=== PATIENT | female | born 1945 | race Caucasian/White ===

== ENCOUNTER 2024-03-11 02:31 | Inpatient (IN) | payer MEDICARE, MEDICAID ==
[~2024-03-11] VITALS: Ht 165.1 cm; Wt 54.4 kg
[2024-03-11 02:50] VITALS: PULSE 62; RESP 18; O2SAT 96
--- NOTE | 2024-03-11 02:55 | ED.PDOC ---
History of Present Illness HPI Comments 78-year-old female who came to ER for cellulitis infection. Patient does have a history of hypertension, diabetes, and breast cancer. Patient underwent lumpectomy and lymph node dissection of the left breast last January 31 at [facility]. KYMBERLY drain attached. For the past few days patient has been complaining of on the left lateral breast area at the area of the KYMBERLY drain with serosanguineous fluid seen. Noted areas gotten more red and inflamed over the past days. Denies any fever. Patient went to [facility] but was eventually transferred here for further management. 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 OPERATOR Hx Family History Family History: Reviewed,noncontributory to illness Social History Smoker: Non-Smoker Alcohol: Denies ETOH Use Drugs: Denies Drug Use Lives In: Home Constitutional: denies: chills, diaphoresis, fatigue, fever, malaise, sweats, weakness, others EENTM: denies: blurred vision, double vision, ear bleeding, ear discharge, ear drainage, ear pain, ear ringing, eye pain, eye redness, hearing loss, mouth pain, mouth swelling, nasal discharge, nose bleeding, nose congestion, nose pain, photophobia, tearing, throat pain, throat swelling, voice changes, others Respiratory: denies: cough, hemoptysis, orthopnea, SOB at rest, shortness of breath, SOB with excertion, stridor, wheezing, others Cardiovascular: denies: chest pain, dizzy spells, diaphoresis, Dyspnea on exe rtion, edema, irregular heart beat, left arm pain, lightheadedness, palpitations, PND, syncope, others Gastrointestinal: denies: abdomen distended, abdominal pain, blood streaked bowels, constipated, diarrhea, dysphagia, difficulty swallowing, hematemesis, melena, nausea, poor appetite, poor fluid intake, rectal bleeding, rectal pain, vomiting, others Genitourinary: denies: abnormal vagina bleeding, burning, dyspareunia, dysuria, flank pain, frequency, hematuria, incontinence, pain, , vagina discharge, urgency, others Neurological: denies: dizziness, fainting, headache, left sided numbness, left sided weakness, numbness, paresthesia, pre-existing deficit, right sided numbness, right sided weakness, seizure, speech problems, tingling, tremors, weakness, others Musculoskeletal: denies: back pain, gout, joint pain, joint swelling, muscle pain, muscle stiffness, neck pain, others Integumetry: reports: others (Cellulitis left chest wall); denies: bruises, change in color, change in hair/nails, dryness, laceration, lesions, lumps, rash, wounds Allergic/Immunocompromised: denies: Difficulty Healing, Frequent Infections, Hives, Itching, others Hematologic/Lymphatic: denies: anemia, blood clots, easy bleeding, easy bruising, swollen glands, others Endocrine: denies: excessive hunger, excessive sweating, excessive thirst, excessive urination, flushing, intolerance to cold, intolerance to heat, unexplained weight gain, unexplained weight loss, others Psychiatric: denies: anxiety, bipolar disorder, depression, hopeless, panic disorder, schizophrenia, sleepless, suicidal, others Physical Exam General Appearance: No Apparent Distress, Normal HEENT: Normal ENT Inspection, Pharynx Normal, TMs Normal Neck: Full Range of Motion, Non-Tender, Normal, Normal Inspection Respiratory: Chest Non-Tender, Lungs Clear, No Accessory Muscle Use, No Respiratory Distress, Normal Breath Sounds Cardiovascular: No Edema, No JVD, No Murmur, No Gallop, Normal Peripheral Pulses, Regular Rate/Rhythm Breast Exam: Other (Tenderness erythema and warmth to chest into the left axillary area with KYMBERLY drain) Gastrointestinal: No Organomegaly, Non Tender, No Pulsatile Mass, Normal Bowel Sounds, Soft Genitalia: Deferred Pelvic: Deferred Rectal: Deferred Extremities: No calf tenderness, Normal capillary refill, Normal inspection, Normal range of motion, Non-tender, No pedal edema Musculoskeletal : Apperance: Normal Neurologic: Alert, product management internship II-XII nml as Tested, No Motor Deficits, Normal Affect, Normal Mood, No Sensory Deficits Cerebellar Function: Normal Reflexes: Normal Skin: Dry, Normal Color, Warm Lymphatic: No Adenopathy Was a procedure done? Was a procedure done?: No Differential Dx Considerations may include: Cellulitis, abscess X-Ray, Labs, Meds, VS Vital Signs Date Time Temp Pulse Resp B/P (MAP) Pulse Ox O2 Delivery O2 Flow Rate FiO2 03/11/24 05:00 72 14 141/70 (93) 96 03/11/24 04:25 75 03/11/24 04:06 62 15 151/64 03/11/24 03:40 64 13 151/64 03/11/24 02:50 98.4 62 15 151/64 (93) 96 98.4 03/11/24 02:50 62 18 96 Nasal Cannula* 2 28 03/11/24 02:50 98.4 62 18 142/70 (94) 94 Lab Test 03/11/24 02:50 Range/Units White Blood Count 4.8 4.4-10.8 10^3/uL Red Blood Count 4.18 4.0-5.20 10^6/uL Hemoglobin 13.3 12.2-16.2 g/dL Hematocrit 39.5 36.0-46.0 % Mean Corpuscular Volume 94.6 80.0-100.0 fL Mean Corpuscular Hemoglobin 31.8 28.0-32.0 pg Mean Corpuscular Hemoglobin Concent 33.7 32.0-36.0 g/dL Red Cell Distribution Width 12.9 11.8-14.3 % Platelet Count 254 140-450 10^3/uL Mean Platelet Volume 6.6 L 6.9-10.8 fL Neutrophils (%) (Auto) 70.0 37.0-80.0 % Lymphocytes (%) (Auto) 20.5 10.0-50.0 % Monocytes (%) (Auto) 8.0 0.0-12.0 % Eosinophils (%) (Auto) 0.8 0.0-7.0 % Basophils (%) (Auto) 0.7 0.0-2.0 % Neutrophils # (Auto) 3.3 1.6-8.6 10 ^3/uL Lymphocytes # (Auto) 1.0 0.4-5.4 10 ^3/uL Monocytes # (Auto) 0.4 0-1.3 10 ^3/uL Eosinophils # (Auto) 0 0-0.8 10 ^3/uL Basophils # (Auto) 0 0-0.2 10 ^3/uL Nucleated Red Blood Cells 0.0 % Sodium Level 138 136-145 mmol/L Potassium Level 3.8 3.5-5.1 mmol/L Chloride Level 105 98-107 mmol/L Carbon Dioxide Level 28 20-31 mmol/L Anion Gap 5 5-15 Blood Urea Nitrogen 7 L 9-23 mg/dL Creatinine 0.64 0.550-1.02 mg/dL Glomerular Filtration Rate Calc 91 >90 mL/min BUN/Creatinine Ratio 10.9 10.0-20.0 Serum Glucose 106 74-106 mg/dL Lactic Acid Level 1.1 0.4-2.0 mmol/L Calcium Level 9.7 8.7-10.4 mg/dL Current Medications Medications (Trade) Dose Ordered Sig/Jaziel Route Start Time Stop Time Status Last Admin Morphine Sulfate 4 mg ONCE ONCE IV 03/11/24 03:30 03/11/24 03:31 DC 03/11/24 03:40 Ondansetron HCl (Zofran) 4 mg ONCE ONCE IV 03/11/24 03:30 03/11/24 03:31 DC 03/11/24 03:40 Time of 1ST Reevaluation: 02:42 Reevaluation 1ST: Unchanged Patient Education/Counseling: Diagnosis, Treatment Family Education/Counseling: No Family Present Departure 1 Departure Time of Disposition: 05:37 (Patient with cellulitis of the chest wall. We will admit patient for IV antibiotics, expert consultation and further workup) Impression: Primary Impression: Cellulitis of chest wall Disposition: 09 ADMITTED INPATIENT Admit to: Med Surg Condition: Serious Critical Care Note Critical Care Time?: No Stability Stability form required: No Heart Score Heart Score: Heart Score Response (Comments) Value History N/A 0 EKG N/A 0 Age N/A 0 Risk Factors N/A 0 Troponin N/A 0 Total 0 I personally scribed for MARCUS RANGEL MD ([email or web address]) on 03/11/24 at 02:55. Elect ronically submitted by Derrick Robb ([email or web address]). MARCUS RANGEL MD Mar 11, 2024 02:55
[2024-03-11 03:06] LABS: Basophils # (auto) 0 10 ^3/uL (0-0.2); Basophils % (auto) 0.7 % (0.0-2.0); Eosinophils # (auto) 0 10 ^3/uL (0-0.8); Eosinophils % (auto) 0.8 % (0.0-7.0); Hematocrit 39.5 % (36.0-46.0); Hemoglobin 13.3 g/dL (12.2-16.2); Lymphocytes % (auto) 20.5 % (10.0-50.0); Mean Corpuscular Hemoglobin 31.8 pg (28.0-32.0); Mean Corpuscular Hgb Conc. 33.7 g/dL (32.0-36.0); Mean Corpuscular Volume 94.6 fL (80.0-100.0); Monocytes # (auto) 0.4 10 ^3/uL (0-1.3); Neutrophils # (auto) 3.3 10 ^3/uL (1.6-8.6); Platelet Count (auto) 254 10^3/uL (140-450); Red Blood Cells 4.18 10^6/uL (4.0-5.20); Red Cell Distribution Width 12.9 % (11.8-14.3); White Blood Cell 4.8 10^3/uL (4.4-10.8)
[2024-03-11 03:26] LABS: Chloride 105 mmol/L (98-107); Potassium 3.8 mmol/L (3.5-5.1); Sodium 138 mmol/L (136-145)
[2024-03-11 03:27] LABS: Anion Gap 5 (5-15); Carbon Dioxide 28 mmol/L (20-31)
[2024-03-11 03:28] LABS: Calcium 9.7 mg/dL (8.7-10.4)
[2024-03-11 03:32] LABS: BUN/Creatinine Ratio 10.9 (10.0-20.0); Blood Urea Nitrogen 7 mg/dL (9-23); Glucose 106 mg/dL (74-106)
[2024-03-11] MEDS: ONDANSETRON HCL 4 MG/2 ML VIAL IV ONE (03:40)
[2024-03-11] MEDS: MORPHINE SULFATE 4 MG/ML SYR/VIAL IV ONE (03:40)
[2024-03-11] MEDS: IOHEXOL 300 MG/ML 100ML BOTTLE IJ ONE (04:06)
--- NOTE | 2024-03-11 05:44 | DVH ---
Examination: CXICT CLINICAL INDICATION: ;Chest wall cellulitis c/f abscess DIREAS;Reason for Exam: Stretcher;Stretcher;Modes of Transportatio n DITRANS;How is patient transported? ;y OECTB;Has the patient had a recent BUN/CREAT? ;N OECTC;Has t he patient had IV contrast within last 48 hours? ;Y OECTN;Has patient been NPO for at least 4 hours COMPARISON: None. CONTRAST USED: Intravenous TECHNIQUE: A post-contrast CT study of the chest is performed. CT scan was done according to ALARA (As Low as Reasonably Achievable). Multiplanar reconstructions were obtained. FINDINGS: Lower neck and thyroid: Appear normal. Lungs and pleura: Fibro-atelectatic opacities are seen in the right middle lobe, lingula and both lo wer lobes. A focal, 11 mm sized, ground-glass attenuating nodule is seen in the right upper lobe (image 10, seri es 3). The pulmonary parenchyma does not show any significant abnormality. No pulmonary nodules are detecte d. Pleural spaces are clear. Mediastinum, Heart and great vessels: The trachea and the mainstem bronchi are normal. No significa nt mediastinal lymphadenopathy is detected. The mediastinal vasculature appears normal. Cardiac siz e appears normal. No obvious pericardial effusion. Chest wall and Axillae: Mild fat stranding is seen in the left breast parenchyma, with associated cu taneous thickening. An ill-defined hypoenhancing lesion is seen in the upper outer quadrant of the left breast, which parker roximately measures 21 x 21 mm. A small focus of calcification is seen within. Peripherally enhancing fluid collection is seen in the left axilla, which approximately measures 40 x 29 mm. Drainage tube is noted in place. A few subcentimeter-sized enhancing adjacent left axillary lymph nodes are seen. A few subcentimeter-sized and enlarged lobulated hypodense lesions are seen in the upper outer and lo wer outer quadrants of the right breast, largest measuring 26 x 20 mm. No evidence of involvement of the overlying skin surface and underlying pectoralis muscles and chest wall is noted. Osseous structures: Moderate degenerative changes are seen in the thoracic spine. Visualized Upper Abdomen: Small sliding hiatus hernia. Gallbladder: Not visualised. Adrenal glands: Appears normal. Liver: Mild hepatic steatosis. Spleen: Visualized appears normal. Pancreas: Appears normal. Kidneys: Visualized left kidney appears normal. IMPRESSION: 1. Fibro-atelectatic opacities are seen in the right middle lobe, lingula and both lower lobes. 2. A focal, 11 mm sized, ground-glass attenuating nodule is seen in the right upper lobe (image 10, series . Follow-up CT at 12 months according to Fleischner Society guidelines. 3. Peripherally enhancing fluid collection is seen in the left axilla. This is probably of infectiv e etiology. 4. Bilateral breast nodules as described above. Correlation with mammogram is suggested. 5. A few subcentimeter-sized enhancing adjacent left axillary lymph nodes are seen. 6. Small sliding hiatus hernia. 7. Mild hepatic steatosis. Electronically Signed 03/11/2024 05:36 Sunny Harris
[2024-03-11] MEDS ORDERED: ONDANSETRON HCL 4 MG/2 ML VIAL IV PRN (07:00)
[2024-03-11] MEDS ORDERED: hydrALAZINE HCL 20 MG/ML VL IV PRN (07:00)
[2024-03-11] MEDS ORDERED: DOCUSATE SOD 100 MG CAP PO PRN (07:00)
[2024-03-11] MEDS ORDERED: ACETAMINOPHEN 325 MG TAB PO PRN (07:00)
--- NOTE | 2024-03-11 07:21 | DVHHP2 ---
History of Present Illness Reason for Visit: Left breast infection History of Present Illness The patient is a 78-year-old female with past medical history of left breast cancer, DM, and hypertension who presented to [facility] ED for evaluation of left breast infection. Patient underwent lumpectomy and lymph node dissection of the left breast last February 01, 2024 at [facility] with KYMBERLY drain attached. For the past few days patient has been complaining of on the left lateral breast area at the area of the KYMBERLY drain with serosanguineous fluid seen, noted areas gotten more red and inflamed over the past days. Denies any fever. Patient went to [facility] but was eventually transferred here for further management. Patient was seen and evaluated in the ED, laboratory data shows WBC 4.8, platelets 254, sodium 138, potassium 3.8, BUN 7, creatinine 0.64, glucose 106, lactic acid 1.1, blood pressure 141/70, heart rate 72, temperature 98.4 F, O2 saturation 94% on oxygen. Chest CT revealing fibrotic atelectatic opacities are seen in the right middle lobe, lingula and both lower lobes, a focal 11 mm sized ground-glass attenuating nodules is seen in the right upper lobe, please review imaging reports. Patient was started on IV antibiotic regimen vancomycin, please see medication orders section in the computer. On my assessment, patient denied chest pain, no headache, no dizziness, no diaphoresis, currently on oxygen, no nausea, no vomiting, no fever, no chills. Patient was admitted for further evaluation and medical management. Past Medical History Left breast cancer, DM, HTN Past Surgical History Lumpectomy and lymph node dissection Family History Reviewed, noncontributory to the management of this case. Past Social History The patient lives at home, denies smoking, alcohol or illicit drugs abuse. Review of Systems Constitutional: Yes: Weakness; No: Fever, Chills, Sweats, Malaise, Other Eyes: No: Pain, Vision change, Conjunctivae inflammation, Eyelid inflammation, Other, Redness ENT: No: Ear pain, Ear discharge, Nose pain, Nose discharge, Nose congestion, Mouth pain, Mouth swelling, Throat pain, Throat swelling, Other Respiratory: No: Cough, Dry, Shortness of breath, SOB with excertion, Wheezing, Hemoptysis, Pleuritic Pain, Sputum, Wheezing, Other Cardiovascular: No: Chest Pain, Palpitations, Orthopnea, Paroxysmal Noc. Dyspnea, Edema, Lt Headedness, Other Gastrointestinal: No: Nausea, Vomiting, Abdominal Pain, Diarrhea, Constipation, Melena, Hematochezia, Other Genitourinary: No Dysuria, No Frequency, No Incontinence, No Hematuria, No Retention, No Other Musculoskeletal: No: other, neck pain, shoulder pain, arm pain, back pain, hand pain, leg pain, foot pain Skin: Other (Cellulitis left chest wall); No: Rash, Lesions, Jaundice, Bruising Neurological: No: Weakness, Numbness, Incoordination, Change in speech, Confusion, Seizures, Other Allergies: Coded Allergies: NO KNOWN ALLERGIES (Unverified , 03/11/24) Medications Current Medications Medications Dose Ordered Sig/Jaziel Route Start Time Stop Time Status Last Admin Dose Admin Sodium Chloride 10 ml Q8HR IV 03/11/24 14:00 UNV Acetaminophen/ Hydrocodone Bitart 1 tab Q4HP PRN PO 03/11/24 07:00 UNV Ondansetron HCl 4 mg Q4HP PRN IV 03/11/24 07:00 UNV Docusate Sodium 100 mg BIDPRN PRN PO 03/11/24 07:00 UNV Acetaminophen 650 mg Q6HP PRN PO 03/11/24 07:00 UNV Metoprolol Tartrate 25 mg BID PO 03/11/24 10:00 UNV Hydralazine HCl 10 mg Q6HP PRN IV 03/11/24 07:00 UNV Exam Vital Signs Vital Signs Date Time Temp Pulse Resp B/P (MAP) Pulse Ox O2 Delivery O2 Flow Rate FiO2 03/11/24 05:00 72 14 141/70 (93) 96 03/11/24 02:50 98.4 98.4 03/11/24 02:50 Nasal Cannula* 2 28 General Appearance: Alert, Oriented X3, Cooperative, No acute distress HEENT: Atraumatic, PERRLA, EOMI, Mucous membr. moist/pink Respiratory: Normal air movement, Other (Diminished breath sounds) Cardiovascular: Regular rate, Normal S1, Normal S2, No murmurs Abdominal: Normal bowel sounds, Soft, No tenderness, No hepatospenomegaly, No masses Extremities: No clubbing, No cyanosis, No edema, Normal pulses, No tenderness/swelling Skin: No rashes, No breakdown, No significant lesion Neuro: Normal speech, Normal tone, Sensation intact, Cranial nerves 3-12 NL, Reflexes 2+, Other (Generalized weakness) Psych/Mental Status: Mental status NL, Mood NL Labs/Xrays Labs Test 03/11/24 02:50 Range/Units White Blood Count 4.8 4.4-10.8 10^3/uL Red Blood Count 4.18 4.0-5.20 10^6/uL Hemoglobin 13.3 12.2-16.2 g/dL Hematocrit 39.5 36.0-46.0 % Mean Corpuscular Volume 94.6 80.0-100.0 fL Mean Corpuscular Hemoglobin 31.8 28.0-32.0 pg Mean Corpuscular Hemoglobin Concent 33.7 32.0-36.0 g/dL Red Cell Distribution Width 12.9 11.8-14.3 % Platelet Count 254 140-450 10^3/uL Mean Platelet Volume 6.6 L 6.9-10.8 fL Neutrophils (%) (Auto) 70.0 37.0-80.0 % Lymphocytes (%) (Auto) 20.5 10.0-50.0 % Monocytes (%) (Auto) 8.0 0.0-12.0 % Eosinophils (%) (Auto) 0.8 0.0-7.0 % Basophils (%) (Auto) 0.7 0.0-2.0 % Neutrophils # (Auto) 3.3 1.6-8.6 10 ^3/uL Lymphocytes # (Auto) 1.0 0.4-5.4 10 ^3/uL Monocytes # (Auto) 0.4 0-1.3 10 ^3/uL Eosinophils # (Auto) 0 0-0.8 10 ^3/uL Basophils # (Auto) 0 0-0.2 10 ^3/uL Nucleated Red Blood Cells 0.0 % Sodium Level 138 136-145 mmol/L Potassium Level 3.8 3.5-5.1 mmol/L Chloride Level 105 98-107 mmol/L Carbon Dioxide Level 28 20-31 mmol/L Anion Gap 5 5-15 Blood Urea Nitrogen 7 L 9-23 mg/dL Creatinine 0.64 0.550-1.02 mg/dL Glomerular Filtration Rate Calc 91 >90 mL/min BUN/Creatinine Ratio 10.9 10.0-20.0 Serum Glucose 106 74-106 mg/dL Lactic Acid Level 1.1 0.4-2.0 mmol/L Calcium Level 9.7 8.7-10.4 mg/dL PATIENT: LIBERTAD JARAMILLO ACCT: [id number] UNIT: [id number] : 1945 LOC: ER ROOM / BED: / AGE / SEX: 78 / F ADM STATUS: REG ER SERVICE 023 ORDERING PHYSICIAN: MARCUS RANGEL MD PROCEDURE(s): CXICT - CHEST WITH CONTRAST REASON: Chest wall cellulitis c/f abscess ORDER NUMBER(s): [id number], ACCESSION NUMBER(s): [id number] Examination: CXICT CLINICAL INDICATION: ;Chest wall cellulitis c/f abscess DIREAS;Reason for Exam: Stretcher;Stretcher;Modes of Transportation DITRANS;How is patient transported? ;y OECTB;Has the patient had a recent BUN/CREAT? ;N OECTC;Has the patient had IV contrast within last 48 hours? ;Y OECTN;Has patient been NPO for at least 4 hours COMPARISON: None. CONTRAST USED: Intravenous TECHNIQUE: A post-contrast CT study of the chest is performed. CT scan was done according to ALARA (As Low as Reasonably Achievable). Multiplanar reconstructions were obtained. FINDINGS: Lower neck and thyroid: Appear normal. Lungs and pleura: Fibro-atelectatic opacities are seen in the right middle lobe, lingula and both lower lobes. A focal, 11 mm sized, ground-glass attenuating nodule is seen in the right upper lobe (image 10, series 3). The pulmonary parenchyma does not show any significant abnormality. No pulmonary nodules are detected. Pleural spaces are clear. Mediastinum, Heart and great vessels: The trachea and the mainstem bronchi are normal. No significant mediastinal lymphadenopathy is detected. The mediastinal vasculature appears normal. Cardiac size appears normal. No obvious pericardial effusion. Chest wall and Axillae: Mild fat stranding is seen in the left breast pare nchyma, with associated cutaneous thickening. An ill-defined hypoenhancing lesion is seen in the upper outer quadrant of the left breast, which approximately measures 21 x 21 mm. A small focus of calcification is seen within. Peripherally enhancing fluid collection is seen in the left axilla, which approximately measures 40 x 29 mm. Drainage tube is noted in place. A few subcentimeter-sized enhancing adjacent left axillary lymph nodes are seen. A few subcentimeter-sized and enlarged lobulated hypodense lesions are seen in the upper outer and lower outer quadrants of the right breast, largest measuring 26 x 20 mm. No evidence of involvement of the overlying skin surface and underlying pectoralis muscles and chest wall is noted. Osseous structures: Moderate degenerative changes are seen in the thoracic spine. Visualized Upper Abdomen: Small sliding hiatus hernia. Gallbladder: Not visualised. Adrenal glands: Appears normal. Liver: Mild hepatic steatosis. Spleen: Visualized appears normal. Pancreas: Appears normal. Kidneys: Visualized left kidney appears normal. IMPRESSION: 1. Fibro-atelectatic opacities are seen in the right middle lobe, lingula and both lower lobes. 2. A focal, 11 mm sized, ground-glass attenuating nodule is seen in the right upper lobe (image 10, series. Follow-up CT at 12 months according to Fleischner Society guidelines. 3. Peripherally enhancing fluid collection is seen in the left axilla. This is probably of infective etiology. 4. Bilateral breast nodules as described above. Correlation with mammogram is suggested. 5. A few subcentimeter-sized enhancing adjacent left axillary lymph nodes are seen. 6. Small sliding hiatus hernia. 7. Mild hepatic steatosis. Assessment/Plan Assessment/Plan Cellulitis of chest wall Infection of left breast Anxiety Generalized weakness Plan 1. Admit to med surge unit 2. Breathing treatment 3. Pain control management 4. IV antibiotic management 5. Management of fluids and electrolytes 6. Consultation for hospitalist 7. Diagnostic test chest CT 8. DVT prophylaxis on SCDs 9. Repeat labs CBC, CMP in a.m. 10. Home medication reviewed and reconciled 11. Continue with current medical management 12. Treatment plan discussed with patient and RN. Patient verbalized understandi sandra. Plan discussed with: Patient, Other (RN) My Orders Orders - KEN SAM DNP Procedure Category Date Status Time Allergies ROLAND 03/11/24 In Process 06:57 Code Status CODE 03/11/24 Transmitted 06:57 Sodium Chloride Lock PHA 03/11/24 Logged (Saline Lock Ns) 14:00 Oxygen Per Hour RT 03/11/24 Transmitted 06:57 Hydrocodone-Acet PHA 03/11/24 Logged 5/325mg Tab ([place] 07:00 Ondansetron Hcl PHA 03/11/24 Logged (Zofran) 07:00 Docusate Sodium [facility] 03/11/24 Logged Capsule ([place] 07:00 Complete Blood Count LAB 03/12/24 Verified 04:00 Comprehensive LAB 03/12/24 Verified Metabolic Panel 04:00 Cardiac DIET 03/11/24 Transmitted Diet-2gna,Lofat,Lochol Breakfast Condition: Fair [facility] 03/11/24 In Process 06:57 Acetaminophen Tablet [facility] 03/11/24 Logged (Tylenol Tablet) 07:00 Bedrest With Bathroom [facility] 03/11/24 In Process Privileg 06:57 Sequential [facility] 03/11/24 In Process Compression Device Metoprolol Tartrate [facility] 03/11/24 Logged Tablet (Lopressor Ta 10:00 Hydralazine Injection [facility] 03/11/24 Logged (Apresoline Inject 07:00 Albumin LAB 03/11/24 In Process 06:57 Aspartate Amino LAB 03/11/24 In Process Transferase 06:57 Bilirubin, Total LAB 03/11/24 In Process 06:57 Total Protein LAB 03/11/24 In Process 06:57 Vancomycin Per [facility] 03/11/24 Verified Pharmacy 07:30 Admit ADMIT 03/11/24 Verified 07:18 Nitroglycerin [facility] 03/11/24 Verified Sublingual (Ntrostat 07:30 Morphine Sulfate [facility] 03/11/24 Verified Injection 07:30 Notify Of Changes [facility] 03/11/24 Verified From Base 07:18 Checker In For [facility] 03/11/24 Verified 24 Hours 07:18 Emergency Dysrhythmia [facility] 03/11/24 Verified Protocol 07:18 Rhythm Strips Once [facility] 03/11/24 Verified Every Shift 07:18 Oxygen By Nasal 03/11/24 Verified Cannula 07:18 Problem List: (1) Generalized weakness (2) Anxiety (3) Infection of left breast (4) Cellulitis of chest wall Date of Service: Mar 11, 2024 Billing Provider: KEN SAM DNP Common Visit Codes: [id number] INP/OBS CARE (HIGH) KEN SAM DNP Mar 11, 2024 07:21
[2024-03-11 07:23] LABS: Albumin 4.2 g/dL (3.2-4.8); Bilirubin, Total 0.3 mg/dL (0.2-1.0); Total Protein 7.8 g/dL (5.7-8.2)
[2024-03-11] MEDS ORDERED: NITROGLYCERIN 0.4 MG SL TAB SL PRN (07:30)
[2024-03-11] MEDS ORDERED: VANCOMYCIN PER PHARMACY 0 MG IV SCH (07:30)
[2024-03-11] MEDS ORDERED: MORPHINE SULFATE INJ 2 MG/ml SYRG IV PRN (07:30)
[2024-03-11 07:31] VITALS: PULSE 60; RESP 14; O2SAT 99
[2024-03-11] MEDS: METOPROLOL TARTRATE 25 MG TAB PO SCH (07:49)
[2024-03-11] MEDS: LORazepam 0.5 MG TAB PO PRN (07:49)
[2024-03-11] MEDS: HYDROcodone-ACET 5/325MG TAB PO PRN (07:49)
[2024-03-11] MEDS: VANCOMYCIN 1GM/200ML PREMIX 200 ML IV ONE (07:50)
--- NOTE | 2024-03-11 13:15 | DVHPN2 ---
Reviewed: Care Plan, H&P, Labs, Medications, Previous Orders, Radiology Changes from previous H/P or p: No Changes Eyes: No Pain, No Vision change, No Conjunctivae inflammation, No Eyelid inflammation, No Other, No Redness ENT: No Ear pain, No Ear discharge, No Nose pain, No Nose discharge, No Nose congestion, No Mouth pain, No Mouth swelling, No Throat pain, No Throat swelling, No Other Cardiovascular: No Chest Pain, No Palpitations, No Orthopnea, No Paroxysmal Noc. Dyspnea, No Edema, No Lt Headedness, No Other Respiratory: No Cough, No Dry, No Shortness of breath, No SOB with excertion, No Wheezing, No Hemoptysis, No Pleuritic Pain, No Sputum, No Other Gastrointestinal: No Nausea, No Vomiting, No Abdominal Pain, No Diarrhea, No Constipation, No Melena, No Hematochezia, No Other Genitourinary: No Dysuria, No Frequency, No Incontinence, No Hematuria, No Retention, No Other Musculoskeletal: No other, No neck pain, No shoulder pain, No arm pain, No back pain, No hand pain, No leg pain, No foot pain Skin: No Rash, No Lesions, No Jaundice, No Bruising; Other (Cellulitis left chest wall) Objective Vitals Vital Signs Date Time Temp Pulse Resp B/P (MAP) Pulse Ox O2 Delivery O2 Flow Rate FiO2 03/11/24 12:14 50 15 121/59 (79) 97 03/11/24 07:31 Room Air* 0 21 03/11/24 07:30 98.0 98.0 Medications Current Medications Medications Dose Ordered Sig/Jaziel Route Start Time Stop Time Status Last Admin Dose Admin Sodium Chloride 10 ml Q8HR IV 03/11/24 14:00 Acetaminophen/ Hydrocodone Bitart 1 tab Q4HP PRN PO 03/11/24 07:00 03/11/24 07:49 1 TAB Ondansetron HCl 4 mg Q4HP PRN IV 03/11/24 07:00 Docusate Sodium 100 mg BIDPRN PRN PO 03/11/24 07:00 Acetaminophen 650 mg Q6HP PRN PO 03/11/24 07:00 Metoprolol Tartrate 25 mg BID PO 03/11/24 10:00 03/11/24 07:49 25 MG Hydralazine HCl 10 mg Q6HP PRN IV 03/11/24 07:00 Vancomycin HCl 0 ml @ 0 mls/hr UD IV 03/11/24 07:30 Nitroglycerin 0.4 mg Q5MINP PRN SL 03/11/24 07:30 Morphine Sulfate 2 mg Q30M PRN IV 03/11/24 07:30 Lorazepam 0.5 mg Q8HP PRN PO 03/11/24 07:30 03/11/24 07:49 0.5 MG Vancomycin HCl 150 ml @ 150 mls/hr Q12H IV 03/11/24 20:00 Laboratory Results Laboratory Tests 03/11/24 02:50 Chemistry Test 03/11/24 02:50 Albumin 4.2 g/dL (3.2-4.8) Calcium Level 9.7 mg/dL (8.7-10.4) Total Protein 7.8 g/dL (5.7-8.2) LFT Test 03/11/24 02:50 Alanine Aminotransferase (ALT) 28 U/L (7-40) Alkaline Phosphatase 81 U/L (46-116) Aspartate Amino Transferase (AST) 32 U/L (13-40) Total Bilirubin 0.3 mg/dL (0.2-1.0) Labs and/or images reviewed: Labs reviewed by me, Image(s) reviewed by me Assessment/Plan Assessment/Plan Cellulitis left breast/abscess: Vancomycin Zosyn consult for surgeon Dr. Layne History of left breast cancer status post lumpectomy lymph node dissection at [facility] on 02/01/2024 Diabetes Hypertension Moderate malnutrition Time spent 50 minutes Plan discussed with: Patient My Orders Orders - SLICK RODRIGUEZ MD Procedure Category Date Status Time Blood Culture NIKI 03/11/24 Logged 13:09 * Surgical Consult CONS 03/11/24 Transmitted Date of Service: Mar 11, 2024 Billing Provider: SLICK RODRIGUEZ MD Common Visit Codes: [id number] INP/OBS CARE(HIGH) SLICK RODRIGUEZ MD Mar 11, 2024 13:15
[2024-03-11] MEDS: SODIUM CHLOR 0.9% PF (SALINE LOCK) 10ML VIAL/SYR IV SCH (15:16)
[2024-03-11] MEDS: PIPERACILLIN-TAZOB 3.375GM 100 ML IV ONE (15:22)
[2024-03-11 17:00] VITALS: BP 135/81; PULSE 63; RESP 18; TEMP 98.3; O2SAT 94
[2024-03-11] MEDS ORDERED: AMLO1TAB23 PO (18:51)
[2024-03-11] MEDS ORDERED: METO25TA93 PO (18:51)
[2024-03-11] MEDS ORDERED: SACU1TAB7 PO (18:52)
[2024-03-11] MEDS ORDERED: ALPR0.255 PO (18:52)
[2024-03-11 20:00] VITALS: PULSE 56
[2024-03-11 21:00] VITALS: BP 174/81; PULSE 84; RESP 18; TEMP 98.2; O2SAT 92
[2024-03-11] MEDS: VANCOMYCIN 750mg/150ml 150 ML IV SCH (21:02)
[2024-03-11] MEDS ORDERED: PIPERACILLIN-TAZOB 3.375GM 100 ML IV SCH (22:00)
[2024-03-12] VITALS (8 sets, daily range): BP systolic 125–156; BP diastolic 69–80; PULSE 55–102; RESP 16–18; TEMP 97.6–98.8; O2SAT 93–99
[2024-03-12] MEDS: PIPERACILLIN-TAZOB 3.375GM 100 ML IV SCH (00:46)
[2024-03-12] MEDS: MORPHINE SULFATE INJ 2 MG/ml SYRG IV PRN (00:51)
[2024-03-12 07:11] LABS: Basophils # (auto) 0 10 ^3/uL (0-0.2); Basophils % (auto) 0.5 % (0.0-2.0); Eosinophils # (auto) 0.1 10 ^3/uL (0-0.8); Eosinophils % (auto) 1.1 % (0.0-7.0); Hematocrit 43.3 % (36.0-46.0); Hemoglobin 14.4 g/dL (12.2-16.2); Lymphocytes # (auto) 1.4 10 ^3/uL (0.4-5.4); Mean Corpuscular Hemoglobin 31.7 pg (28.0-32.0); Mean Corpuscular Hgb Conc. 33.3 g/dL (32.0-36.0); Mean Corpuscular Volume 95.3 fL (80.0-100.0); Monocytes # (auto) 0.4 10 ^3/uL (0-1.3); Monocytes % (auto) 8.7 % (0.0-12.0); Neutrophils # (auto) 2.8 10 ^3/uL (1.6-8.6); Neutrophils % (auto) 59.7 % (37.0-80.0); Nucleated Red Blood Cells % 0.1 %; Platelet Count (auto) 243 10^3/uL (140-450); Red Blood Cells 4.55 10^6/uL (4.0-5.20); Red Cell Distribution Width 12.8 % (11.8-14.3); White Blood Cell 4.7 10^3/uL (4.4-10.8)
[2024-03-12 07:42] LABS: Alanine Aminotransferase 26 U/L (7-40); Albumin 4.2 g/dL (3.2-4.8); Alkaline Phosphatase 79 U/L (46-116); Anion Gap 7 (5-15); Aspartate Aminotransferase 36 U/L (13-40); Bilirubin, Total 0.5 mg/dL (0.2-1.0); Calcium 9.9 mg/dL (8.7-10.4); Carbon Dioxide 28 mmol/L (20-31); Chloride 104 mmol/L (98-107); Glucose 101 mg/dL (74-106); Potassium 3.7 mmol/L (3.5-5.1); Sodium 139 mmol/L (136-145); Total Protein 7.8 g/dL (5.7-8.2)
[2024-03-12 07:45] LABS: BUN/Creatinine Ratio 7.7 (10.0-20.0); Blood Urea Nitrogen < 5 mg/dL (9-23)
[2024-03-12] MEDS: amLODIPine BESYLATE 5 MG TAB PO SCH (08:40)
--- NOTE | 2024-03-12 13:00 | DVHPN2 ---
Reviewed: Care Plan, H&P, Labs, Medications, Previous Orders, Radiology Changes from previous H/P or p: No Changes Eyes: No Pain, No Vision change, No Conjunctivae inflammation, No Eyelid inflammation, No Other, No Redness ENT: No Ear pain, No Ear discharge, No Nose pain, No Nose discharge, No Nose congestion, No Mouth pain, No Mouth swelling, No Throat pain, No Throat swelling, No Other Cardiovascular: No Chest Pain, No Palpitations, No Orthopnea, No Paroxysmal Noc. Dyspnea, No Edema, No Lt Headedness, No Other Respiratory: No Cough, No Dry, No Shortness of breath, No SOB with excertion, No Wheezing, No Hemoptysis, No Pleuritic Pain, No Sputum, No Other Gastrointestinal: No Nausea, No Vomiting, No Abdominal Pain, No Diarrhea, No Constipation, No Melena, No Hematochezia, No Other Genitourinary: No Dysuria, No Frequency, No Incontinence, No Hematuria, No Retention, No Other Musculoskeletal: No other, No neck pain, No shoulder pain, No arm pain, No back pain, No hand pain, No leg pain, No foot pain Skin: No Rash, No Lesions, No Jaundice, No Bruising; Other (Cellulitis left chest wall) Objective Vitals Vital Signs Date Time Temp Pulse Resp B/P (MAP) Pulse Ox O2 Delivery O2 Flow Rate FiO2 03/12/24 12:56 97.6 63 17 156/80 (105) 93 97.6 03/12/24 08:00 Nasal Cannula* 2 28 Intake/Output Intake and Output 03/12/24 07:00 Intake Total 1600 ml Balance 1600 ml Intake Oral 1150 ml IV Total 450 ml # Voids 6 Medications Current Medications Medications Dose Ordered Sig/Jaziel Route Start Time Stop Time Status Last Admin Dose Admin Sodium Chloride 10 ml Q8HR IV 03/11/24 14:00 03/12/24 06:30 10 ML Acetaminophen/ Hydrocodone Bitart 1 tab Q4HP PRN PO 03/11/24 07:00 03/11/24 07:49 1 TAB Ondansetron HCl 4 mg Q4HP PRN IV 03/11/24 07:00 Docusate Sodium 100 mg BIDPRN PRN PO 03/11/24 07:00 Acetaminophen 650 mg Q6HP PRN PO 03/11/24 07:00 Hydralazine HCl 10 mg Q6HP PRN IV 03/11/24 07:00 Vancomycin HCl 0 ml @ 0 mls/hr UD IV 03/11/24 07:30 Nitroglycerin 0.4 mg Q5MINP PRN SL 03/11/24 07:30 Morphine Sulfate 2 mg Q30M PRN IV 03/11/24 07:30 Lorazepam 0.5 mg Q8HP PRN PO 03/11/24 07:30 03/12/24 08:39 0.5 MG Vancomycin HCl 150 ml @ 150 mls/hr Q12H IV 03/11/24 20:00 03/12/24 08:40 150 MLS/HR Amlodipine Besylate 10 mg DAILY PO 03/12/24 10:00 03/12/24 08:40 10 MG Piperacillin Sod/ Tazobactam Sod 100 ml @ 25 mls/hr Q8H IV 03/12/24 00:00 03/12/24 08:40 25 MLS/HR Morphine Sulfate 2 mg Q4HPRN PRN IV 03/11/24 23:30 03/12/24 06:31 2 MG Laboratory Results Laboratory Tests 03/12/24 06:14 Chemistry Test 03/12/24 06:14 Albumin 4.2 g/dL (3.2-4.8) Calcium Level 9.9 mg/dL (8.7-10.4) Total Protein 7.8 g/dL (5.7-8.2) LFT Test 03/12/24 06:14 Alanine Aminotransferase (ALT) 26 U/L (7-40) Alkaline Phosphatase 79 U/L (46-116) Aspartate Amino Transferase (AST) 36 U/L (13-40) Total Bilirubin 0.5 mg/dL (0.2-1.0) Labs and/or images reviewed: Labs reviewed by me, Image(s) reviewed by me Assessment/Plan Assessment/Plan Cellulitis left breast/abscess: Vancomycin Zosyn consult for surgeon Dr. Layne, Dr. Hurley advised me to discharge her and advised the patient to go back to [facility] where she had the surgery History of left breast cancer status post lumpectomy lymph node dissection at [facility] on 02/01/2024 Diabetes Hypertension Moderate malnutrition Time spent 40 minutes Patient says she lives in [place] and does not want to be discharged today Plan discussed with: Patient My Orders Orders - SLICK RODRIGUEZ MD Procedure Category Date Status Time Blood Culture NIKI 03/11/24 In Process 13:09 * Surgical Consult CONS 03/11/24 Transmitted Amlodipine Tablet PHA 03/12/24 In Process (Norvasc Tablet) 10:00 Cardiac DIET 03/11/24 Transmitted Diet-2gna,Lofat,Lochol Dinner Piperacillin-Tazob PHA 03/12/24 In Process 3.375gm (Zosyn 3.375g 00:00 Date of Service: Mar 12, 2024 Billing Provider: SLICK RODRIGUEZ MD Common Visit Codes: [id number] INP/OBS CARE(HIGH) SLICK RODRIGUEZ MD Mar 12, 2024 13:00
--- NOTE | 2024-03-12 14:19 | DVHINCON2 ---
Date of service: Mar 12, 2024 Family History: Patient reports no known family medical history. Allergies: Coded Allergies: NO KNOWN ALLERGIES (Unverified , 03/11/24) Home Meds Reported Medications Alprazolam (Alprazolam) 0.25 Mg Tab, TAB PO 03/11/24 Sacubitril-Valsartan (Entresto 49-51 mg) 1 Tab Tab, 1 TAB PO BID 03/11/24 Metoprolol Succinate (Metoprolol Succinate Er) 25 Mg Tab, 1 TAB PO DAILY 03/11/24 Amlodipine Besylate (Amlodipine Besylate) 10 Mg Tab, 1 TAB PO DAILY 03/11/24 Current Medications Current Medications Medications (Trade) Dose Ordered Sig/Jaziel Route PRN Reason Start Time Stop Time Status Last Admin Vancomycin HCl 150 ml @ 150 mls/hr Q12H IV 03/11/24 20:00 03/12/24 08:40 Piperacillin Sod/ Tazobactam Sod 100 ml @ 25 mls/hr Q8HR IV 03/11/24 22:00 03/11/24 23:01 DC Amlodipine Besylate (Norvasc Tablet) 10 mg DAILY PO 03/12/24 10:00 03/12/24 08:40 Piperacillin Sod/ Tazobactam Sod 100 ml @ 25 mls/hr Q8H IV 03/12/24 00:00 03/12/24 08:40 Morphine Sulfate 2 mg Q4HPRN PRN IV SEVERE PAIN (7-10 PAIN SCALE) 03/11/24 23:30 03/12/24 06:31 Vital Signs Vital Signs Date Time Temp Pulse Resp B/P (MAP) Pulse Ox O2 Delivery O2 Flow Rate FiO2 03/12/24 12:56 97.6 63 17 156/80 (105) 93 97.6 03/12/24 08:00 Nasal Cannula* 2 28 Labs/Diagnostic Data Labs Test 03/12/24 06:14 03/11/24 02:50 Range/Units White Blood Count 4.7 4.4-10.8 10^3/uL Red Blood Count 4.55 4.0-5.20 10^6/uL Hemoglobin 14.4 12.2-16.2 g/dL Hematocrit 43.3 36.0-46.0 % Mean Corpuscular Volume 95.3 80.0-100.0 fL Mean Corpuscular Hemoglobin 31.7 28.0-32.0 pg Mean Corpuscular Hemoglobin Concent 33.3 32.0-36.0 g/dL Red Cell Distribution Width 12.8 11.8-14.3 % Platelet Count 243 140-450 10^3/uL Mean Platelet Volume 7.2 6.9-10.8 fL Neutrophils (%) (Auto) 59.7 37.0-80.0 % Lymphocytes (%) (Auto) 30.0 10.0-50.0 % Monocytes (%) (Auto) 8.7 0.0-12.0 % Eosinophils (%) (Auto) 1.1 0.0-7.0 % Basophils (%) (Auto) 0.5 0.0-2.0 % Neutrophils # (Auto) 2.8 1.6-8.6 10 ^3/uL Lymphocytes # (Auto) 1.4 0.4-5.4 10 ^3/uL Monocytes # (Auto) 0.4 0-1.3 10 ^3/uL Eosinophils # (Auto) 0.1 0-0.8 10 ^3/uL Basophils # (Auto) 0 0-0.2 10 ^3/uL Nucleated Red Blood Cells 0.1 % Sodium Level 139 136-145 mmol/L Potassium Level 3.7 3.5-5.1 mmol/L Chloride Level 104 98-107 mmol/L Carbon Dioxide Level 28 20-31 mmol/L Anion Gap 7 5-15 Blood Urea Nitrogen < 5 L 9-23 mg/dL Creatinine 0.65 0.550-1.02 mg/dL Glomerular Filtration Rate Calc 91 >90 mL/min BUN/Creatinine Ratio 7.7 L 10.0-20.0 Serum Glucose 101 74-106 mg/dL Calcium Level 9.9 8.7-10.4 mg/dL Total Bilirubin 0.5 0.2-1.0 mg/dL Aspartate Amino Transferase (AST) 36 13-40 U/L Alanine Aminotransferase (ALT) 26 7-40 U/L Alkaline Phosphatase 79 46-116 U/L Total Protein 7.8 5.7-8.2 g/dL Albumin 4.2 3.2-4.8 g/dL Lactic Acid Level 1.1 0.4-2.0 mmol/L Assessment patient had partial mastectomy for cancer of the left breast and has an indwelling IN INTO THE LEFT AXILLA, THERE IS DIFFUSE CELLULITIS, NO ABSCESS, SHE NEEDS TO RETURN TO HER SURGEON FOR FURTHER FOLLOW UP, THERE IS NO INDICATION FOR EMERGENT SURGICAL INTERVENTION Plan discussed with: Patient LARY JHAVERI MD Mar 12, 2024 14:19
[2024-03-13 00:49] VITALS: BP 140/84; PULSE 57; RESP 16; TEMP 98; O2SAT 99
[2024-03-13 08:00] VITALS: PULSE 47
[2024-03-13 09:16] VITALS: BP 160/83; PULSE 66; RESP 16; TEMP 98; O2SAT 99
[2024-03-13 10:20] LABS: Basophils # (auto) 0 10 ^3/uL (0-0.2); Basophils % (auto) 0.7 % (0.0-2.0); Eosinophils # (auto) 0.1 10 ^3/uL (0-0.8); Hematocrit 41.4 % (36.0-46.0); Hemoglobin 13.9 g/dL (12.2-16.2); Lymphocytes # (auto) 0.8 10 ^3/uL (0.4-5.4); Lymphocytes % (auto) 13.9 % (10.0-50.0); Mean Corpuscular Hgb Conc. 33.6 g/dL (32.0-36.0); Mean Corpuscular Volume 95.3 fL (80.0-100.0); Monocytes # (auto) 0.4 10 ^3/uL (0-1.3); Monocytes % (auto) 6.5 % (0.0-12.0); Neutrophils # (auto) 4.3 10 ^3/uL (1.6-8.6); Neutrophils % (auto) 77.9 % (37.0-80.0); Nucleated Red Blood Cells % 0.1 %; Platelet Count (auto) 252 10^3/uL (140-450); Red Blood Cells 4.34 10^6/uL (4.0-5.20); Red Cell Distribution Width 12.7 % (11.8-14.3); White Blood Cell 5.6 10^3/uL (4.4-10.8)
[2024-03-13] MEDS ORDERED: CLIN-203 PO (12:28)
[2024-03-13] MEDS ORDERED: HYDR-4902 PO (12:29)
[2024-03-13] MEDS ORDERED: ALPR1TAB2 PO (12:30)
--- NOTE | 2024-03-13 12:37 | DVHDS2 ---
Discharge Summary Date of Admission Mar 11, 2024 at 07:29 Date of Discharge: Mar 13, 2024 Admitting Diagnosis Infection Left breast operation site Wounds: Cellulitis left breast area Labs/Diagnostic Data: Laboratory Results Test 03/13/24 09:50 03/12/24 06:14 03/11/24 02:50 White Blood Count 5.6 10^3/uL (4.4-10.8) Red Blood Count 4.34 10^6/uL (4.0-5.20) Hemoglobin 13.9 g/dL (12.2-16.2) Hematocrit 41.4 % (36.0-46.0) Mean Corpuscular Volume 95.3 fL (80.0-100.0) Mean Corpuscular Hemoglobin 32.0 pg (28.0-32.0) Mean Corpuscular Hemoglobin Concent 33.6 g/dL (32.0-36.0) Red Cell Distribution Width 12.7 % (11.8-14.3) Platelet Count 252 10^3/uL (140-450) Mean Platelet Volume 7.0 fL (6.9-10.8) Neutrophils (%) (Auto) 77.9 % (37.0-80.0) Lymphocytes (%) (Auto) 13.9 % (10.0-50.0) Monocytes (%) (Auto) 6.5 % (0.0-12.0) Eosinophils (%) (Auto) 1.0 % (0.0-7.0) Basophils (%) (Auto) 0.7 % (0.0-2.0) Neutrophils # (Auto) 4.3 10 ^3/uL (1.6-8.6) Lymphocytes # (Auto) 0.8 10 ^3/uL (0.4-5.4) Monocytes # (Auto) 0.4 10 ^3/uL (0-1.3) Eosinophils # (Auto) 0.1 10 ^3/uL (0-0.8) Basophils # (Auto) 0 10 ^3/uL (0-0.2) Nucleated Red Blood Cells 0.1 % Creatinine 0.70 mg/dL (0.550-1.02) Glomerular Filtration Rate Calc 89 mL/min (>90) Vancomycin Level Trough 31.0 ug/mL (5-10) Sodium Level 139 mmol/L (136-145) Potassium Level 3.7 mmol/L (3.5-5.1) Chloride Level 104 mmol/L (98-107) Carbon Dioxide Level 28 mmol/L (20-31) Anion Gap 7 (5-15) Blood Urea Nitrogen < 5 mg/dL (9-23) BUN/Creatinine Ratio 7.7 (10.0-20.0) Serum Glucose 101 mg/dL (74-106) Calcium Level 9.9 mg/dL (8.7-10.4) Total Bilirubin 0.5 mg/dL (0.2-1.0) Aspartate Amino Transferase (AST) 36 U/L (13-40) Alanine Aminotransferase (ALT) 26 U/L (7-40) Alkaline Phosphatase 79 U/L (46-116) Total Protein 7.8 g/dL (5.7-8.2) Albumin 4.2 g/dL (3.2-4.8) Lactic Acid Level 1.1 mmol/L (0.4-2.0) Other Laboratory Tests 03/13/24 09:50 03/12/24 06:14 Brief Hx & Hospital Course: 78-year-old female had lumpectomy with lymph node dissection at [facility] for left breast cancer on 02/01/2024 history of diabetes hypertension came to the ER complaining of redness and swelling and tenderness of the left breast area found to have cellulitis in the operation site treated with the vancomycin. Surgeon Dr. Layne was consulted who advised the patient should go back to the surgeon who performed the surgery at [facility]. The patient was advised accordingly and discharged home on clindamycin Xanax and [place] Consults/Reason for consult Surgeon Dr. Layne Operations or Procedures None Condition at Discharge: Fair Final Diagnosis/Problems List Cellulitis left breast/abscess: Vancomycin Zosyn consult for surgeon Dr. Layne, Dr. Hurley advised me to discharge her and advised the patient to go back to [facility] where she had the surgery History of left breast cancer status post lumpectomy lymph node dissection at [facility] on 02/01/2024 Diabetes Hypertension Moderate malnutrition Discharge Disposition: Home Discharge Instruct/Medications Diet: Cardiac 2g Na,low cholest Activity: Light activity Follow Up/Referral: Follow up with your Dr at [facility] Medications: Clindamycin [place] Xanax Transmitted to [facility] 35 (Time taken for discharge summary 35 minutes) Discharge Statement: "Patient was advised to return to the ER or call 911 if any headaches, dizziness, shortness of breath, chest pain, abdominal pain, bleeding, fevers, or worsening of medical condition. Patient was counseled about treatment plan, medications, possible side effects, patientverbalized understanding. All questions were answered to the best of my ability. This discharge took greater then 30 minutes in planning, reviewing documentation, counseling the patient, and discussing with other team members." ASSESSMENT ASSESSMENT Hospital Course Uneventful Assessment Cellulitis left breast/abscess: Vancomycin Zosyn consult for surgeon Dr. Layne, Dr. Hurley advised me to discharge her and advised the patient to go back to [facility] where she had the surgery History of left breast cancer status post lumpectomy lymph node dissection at [facility] on 02/01/2024 Diabetes Hypertension Moderate malnutrition Date of Service: Mar 13, 2024 Billing Provider: SLICK RODRIGUEZ MD Common Visit Codes: [id number] DISCH DAY >30min SLICK RODRIGUEZ MD Mar 13, 2024 12:37
[2024-03-13 13:00] VITALS: BP 134/81; PULSE 60; RESP 20; TEMP 97.7; O2SAT 97
[2024-03-13 14:42] VITALS: BP 134/81; PULSE 60; RESP 20; TEMP 97.7; O2SAT 97
== END 2024-03-13 15:50 | disposition home or self-care (01) | DRG 600 ==
LOC: ER 02:31 → EDBD 02:31 → OVERFLOW 07:29 → WEST WING 14:31 → TELE-WESTW 16:47
PROVIDERS: ADMIT Nurse Practitioner Family; ATTEND Family Medicine
DX: N61.1 Abscess of the breast and nipple (principal); E44.0 Moderate protein-calorie malnutrition; L03.313 Cellulitis of chest wall; L03.112 Cellulitis of left axilla; E11.9 Type 2 diabetes mellitus without complications; F41.9 Anxiety disorder, unspecified; I10 Essential (primary) hypertension; Z85.3 Personal history of malignant neoplasm of breast; Z68.20 Body mass index [BMI] 20.0-20.9, adult
CPT/HCPCS: 36415; 71260; 80048; 80053; 80202; 82040; 82247; 82565; 83605; 84075; 84155; 84450; 84460; 85025; 87040; 96365; 96375; G0378; J2405; J2543